=== PATIENT | male | born 1975 | race Caucasian/White ===

== ENCOUNTER 2020-02-12 13:39 | Emergency (ER) | payer MEDICAID ==
[~2020-02-12] VITALS: Ht 165.1 cm; Wt 83.0 kg
[2020-02-12] MEDS ORDERED: MORPHINE SULFATE 4 MG/ML CPJ (NOT FOR IM USE) IV STA (15:17)
[2020-02-12 16:40] LABS: BASOPHILS % 0.7 % (0.0-2.0); EOSINOPHILS % 3.2 % (0.0-5.0); HEMATOCRIT. 44.6 % (42.0-52.0); HEMOGLOBIN. 15.5 g/dL (14.0-18.0); LYMPHOCYTES % 38.3 % (20.0-50.0); MEAN CORPUSCULAR HEMOGLOBIN 33.5 pg (28.0-32.0); MEAN CORPUSCULAR VOLUME 96.6 fL (80.0-94.0); MEAN PLATELET VOLUME 8.6 fl (7.4-10.4); MONOCYTES % 12.1 % (2.0-8.0); NEUTROPHILS % 45.7 % (40.0-76.0); PLATELET 166 x1000/uL (130-400); RED BLOOD CELL COUNT 4.62 mill/uL (4.7-6.1); RED CELL DISTRIBUTION WIDTH 14.2 % (11.6-14.6)
[2020-02-12 16:43] LABS: CHLORIDE 108 mEq/L (98-107)
[2020-02-12 16:46] LABS: PROTHROMBIN TIME 10.1 sec (9.6-11.0)
[2020-02-12 18:08] VITALS: BP 112/57
== END 2020-02-12 18:10 | disposition home or self-care (01) ==
LOC: ER 13:39
DX: S30.0XXA Contusion of lower back and pelvis, initial encounter (principal); M53.3 Sacrococcygeal disorders, not elsewhere classified; M25.552 Pain in left hip; M25.551 Pain in right hip; Z90.49 Acquired absence of other specified parts of digestive tract; W10.8XXA Fall (on) (from) other stairs and steps, initial encounter; Y93.H3 Activity, building and construction; Y92.69 Other specified industrial and construction area as the place of occurrence of the external cause; Y99.8 Other external cause status
CPT/HCPCS: 36415; 72131; 73522; 80053; 85025; 85610; 96374; 99285; J2270